=== PATIENT | female | born 1990 | race Caucasian/White ===

== ENCOUNTER → 2017-01-20 | Outpatient (CLI) | payer OTHER | END | disposition home or self-care (01) | LOC: LAB 07:26 | PROVIDERS: ATTEND Obstetrics & Gynecology Reproductive Endocrinology | DX: N91.2 Amenorrhea, unspecified (principal) | CPT/HCPCS: 36415; 82670; 84144; 84702 ==

== ENCOUNTER 2017-01-26 20:36 | Emergency (ER) | payer OTHER ==
[~2017-01-26] VITALS: Ht 160 cm; Wt 56.1 kg
[2017-01-26] MEDS ORDERED: DIPH,PERTUSS(ACELL),TET VAC/PF 0.5 ML IM-VACC ONE (20:54)
[2017-01-26] MEDS ORDERED: [UNRECOGNIZED DRUG - OTHER] VG (21:04)
[2017-01-26] MEDS ORDERED: ESTR0.5T INJ (21:04)
[2017-01-26] MEDS ORDERED: PROG50VI2 INJ (21:04)
[2017-01-26] MEDS ORDERED: ASPI-621 PO (21:04)
[2017-01-26] MEDS ORDERED: ONDANSETRON 2MG/ML, 2ML IVPush ONE (21:30)
[2017-01-26] MEDS ORDERED: SODIUM CHLORIDE 0.9% 1,000ML IVBOLUS ONE (21:30)
[2017-01-26] MEDS ORDERED: SODIUM CHLORIDE FLUSH 10ML SYR IVF ONE (21:30)
[2017-01-26 21:46] LABS: ASPARTATE AMINO TRANSFERASE 12 U/L (15-37); BLOOD UREA NITROGEN 13 mg/dL (7-18)
[2017-01-26] MEDS ORDERED: ONDANSETRON 2MG/ML, 2ML ONE (21:57)
[2017-01-27 00:07] VITALS: BP 97/58
== END 2017-01-27 00:09 | disposition home or self-care (01) ==
LOC: ED 21:29
DX: O23.11 Infections of bladder in pregnancy, first trimester (principal); Z3A.01 Less than 8 weeks gestation of pregnancy
CPT/HCPCS: 36415; 76770; 76801; 80053; 81001; 84702; 84703; 85025; 87077; 87086; 87186; 96361; 96374; 99285; J2405; J7030

== ENCOUNTER 2017-09-24 23:39 | Inpatient (IN) | payer OTHER ==
[~2017-09-24] VITALS: Ht 160 cm; Wt 72.0 kg
[~2017-09-24 23:39] MED LIST: ASPI-621 PO; ESTR0.5T INJ; PROG50VI2 INJ; [UNRECOGNIZED DRUG - OTHER] VG
[2017-09-25] MEDS ORDERED: OXYTOCIN 30U/ 0.9% NaCL 500ML 500 ML IV ONE (00:09)
[2017-09-25] MEDS ORDERED: D5%-LACTATED RINGERS 1,000 ML IV SCH (00:09)
[2017-09-25] MEDS ORDERED: OXYTOCIN 30U/ 0.9% NaCL 500ML 500 ML ONE ×2 (00:17→22:42)
[2017-09-25] MEDS ORDERED: NEWBORN KIT ONE (00:17)
[2017-09-25] MEDS ORDERED: LIDOCAINE 1%, 20ML ONE (00:17)
[2017-09-25] MEDS: LACTATED RINGERS 1,000 ML IV SCH ×2 (00:30→13:08)
[2017-09-25] MEDS ORDERED: FENTANYL PF 100 MCG/2ML IVPush PRN (00:30)
[2017-09-25] MEDS ORDERED: ONDANSETRON 2MG/ML, 2ML IVPush PRN (00:30)
[2017-09-25] MEDS ORDERED: LACTATED RINGERS 1,000 ML IVBOLUS PRN ×2 (00:30→01:30)
[2017-09-25] MEDS ORDERED: FENTANYL PF 100 MCG/2ML IV PRN (00:30)
[2017-09-25] MEDS ORDERED: CALCIUM CARBONATE 500 MG TAB.CHEW PO PRN (00:30)
[2017-09-25 00:38] LABS: BASOPHILS # (AUTO) 0.06 x10^3/uL (0-0.1); BASOPHILS % (AUTO) 0 % (0-1); EOSINOPHILS # (AUTO) 0.03 x10^3/uL (0-0.4); EOSINOPHILS % (AUTO) 0 % (1-7); LYMPHOCYTES # (AUTO) 1.93 x10^3/uL (1-3.4); LYMPHOCYTES % (AUTO) 13 % (22-44); MD NO; MEAN CORPUSCULAR HEMOGLOBIN 29.9 pg (27.0-34.8); MEAN CORPUSCULAR HGB CONC 33.8 g/dL (32.4-35.8); MEAN CORPUSCULAR VOLUME 88.4 fL (80-100); MEAN PLATELET VOLUME 11.6 fL (7.4-10.4); MONOCYTES # (AUTO) 0.91 x10^3/uL (0.2-0.8); MONOCYTES % (AUTO) 6 % (2-9); NEUTROPHILS # (AUTO) 11.61 x10^3/uL (1.8-6.8); NEUTROPHILS % (AUTO) 80 % (42-75); PLATELET COUNT 212 x10^3/uL (130-400); RED BLOOD COUNT 4.09 x10^6/uL (3.82-5.3); RED CELL DISTRIBUTION WIDTH 13.9 % (9.6-15.2)
[2017-09-25] MEDS ORDERED: LIDOCAINE-MPF 2% ,5ML ONE (00:53)
[2017-09-25] MEDS ORDERED: FENTANYL/BUPIV./NS/PF 250 ML EPIDCONT ONE (00:54)
[2017-09-25] MEDS ORDERED: LACTATED RINGERS 1,000 ML IV SCH (01:24)
[2017-09-25] MEDS ORDERED: FENTANYL/BUPIV./NS/PF 250 ML EPIDCONT SCH (01:24)
[2017-09-25] MEDS ORDERED: EPHEDRINE 50 MG/ML, 1ML IVPush PRN (01:30)
[2017-09-25] MEDS ORDERED: NALOXONE 0.4 MG/ML, 1ML IVPush PRN (01:30)
[2017-09-25] MEDS ORDERED: CALCIUM CARBONATE 500 MG TAB.CHEW ONE (05:32)
[2017-09-25] MEDS ORDERED: OXYTOCIN 30U/ 0.9% NaCL 500ML 500 ML IV PRN (10:48)
[2017-09-25] MEDS: OXYTOCIN 30U/ 0.9% NaCL 500ML 500 ML IV SCH (22:41)
[2017-09-25] MEDS ORDERED: IBUPROFEN 600 MG TABLET ONE (22:42)
[2017-09-25] MEDS: IBUPROFEN 600 MG TABLET PO PRN (22:45)
[2017-09-25] MEDS ORDERED: RHOGAM FROM BLOOD BANK 1 NOTE EA IM/IV ONE (23:00)
[2017-09-25] MEDS ORDERED: METHYLERGONOVINE 0.2 MG/ML IM PRN (23:00)
[2017-09-25] MEDS ORDERED: ACETAMINOPHEN 325 MG TABLET PO PRN (23:00)
[2017-09-25] MEDS ORDERED: DIPH,PERTUSS(ACELL),TET VAC/PF NC IM-VACC PRN (23:00)
[2017-09-25] MEDS ORDERED: MEASLES,MUMPS&RUBELLA VACC/PF 0.5 ML SQ PRN (23:00)
[2017-09-25] MEDS ORDERED: CARBOPROST TROMETHAMINE 250 MCG/ML, 1ML IM PRN (23:00)
[2017-09-25] MEDS ORDERED: MISOPROSTOL 200 MCG TABLET PR PRN (23:00)
[2017-09-25] MEDS ORDERED: OXYcodone/APAP 5/325MG TABLET PO PRN (23:00)
[2017-09-26 01:00] VITALS: BP 124/80
[2017-09-26 05:00] VITALS: BP 120/70
[2017-09-26] MEDS: IBUPROFEN 600 MG TABLET PO PRN ×3 (05:25→17:00)
[2017-09-26 06:10] LABS: MEAN CORPUSCULAR HEMOGLOBIN 29.5 pg (27.0-34.8); MEAN CORPUSCULAR HGB CONC 33.5 g/dL (32.4-35.8); MEAN CORPUSCULAR VOLUME 88.1 fL (80-100); MEAN PLATELET VOLUME 10.9 fL (7.4-10.4); PLATELET COUNT 179 x10^3/uL (130-400); RED BLOOD COUNT 3.64 x10^6/uL (3.82-5.3); RED CELL DISTRIBUTION WIDTH 15.1 % (9.6-15.2)
[2017-09-26 07:52] LABS: MD YES
[2017-09-26 07:54] LABS: BAND#(MANUAL) 1.28 x10^3/uL; BANDS%(MANUAL) 7 % (0-7); LYMPH#(MANUAL) 0.55 x10^3/uL (1-3.4); LYMPHS% (MANUAL) 3 % (22-44); MONOS#(MANUAL) 0.37 x10^3/uL (0.3-2.7); MONOS% (MANUAL) 2 % (2-9); SEGS% (MANUAL) 88 % (42-75)
[2017-09-26 07:56] LABS: <PLATELET ESTIMATE> ADEQUATE; <PLT MORPHOLOGY> NORMAL PLT MORPH; <RBC MORPHOLOGY> NORMAL
[2017-09-26 08:00] VITALS: BP 127/80
[2017-09-26] MEDS: OXYTOCIN 30U/ 0.9% NaCL 500ML 500 ML IV SCH ×2 (08:41→18:41)
[2017-09-26] MEDS: PRENATAL VIT/IRON/FA 1 EACH TABLET PO SCH (09:26)
[2017-09-26] MEDS: DOCUSATE 100 MG CAPSULE PO PRN ×2 (09:26→20:34)
[2017-09-26] MEDS: OXYcodone/APAP 5/325MG TABLET PO PRN ×3 (11:18→20:35)
[2017-09-26 12:05] VITALS: BP 132/84
[2017-09-26 16:00] VITALS: BP 126/83
[2017-09-26 20:00] VITALS: BP 125/91
[2017-09-27] MEDS: OXYcodone/APAP 5/325MG TABLET PO PRN ×2 (01:59→06:13)
[2017-09-27] MEDS: IBUPROFEN 600 MG TABLET PO PRN ×2 (01:59→08:06)
[2017-09-27] MEDS: OXYTOCIN 30U/ 0.9% NaCL 500ML 500 ML IV SCH (04:41)
[2017-09-27 07:31] VITALS: BP 133/91
[2017-09-27] MEDS: PRENATAL VIT/IRON/FA 1 EACH TABLET PO SCH (08:06)
[2017-09-27] MEDS: DOCUSATE 100 MG CAPSULE PO PRN (08:06)
[2017-09-27] MEDS ORDERED: IBUP-1222 PO (10:21)
[2017-09-27] MEDS ORDERED: OXYC-302 PO (10:21)
== END 2017-09-27 11:55 | disposition home or self-care (01) | DRG 775 ==
LOC: LDOP 23:39 → LDIP 09-25 00:15 → 2NW 09-26 00:37
PROVIDERS: ADMIT Obstetrics & Gynecology Maternal & Fetal Medicine; ATTEND Obstetrics & Gynecology Maternal & Fetal Medicine
PROC: 10D07Z6 Extraction of Products of Conception, Vacuum, Via Natural or Artificial Opening (ICD-10-PCS; principal; 2017-09-25)
DX: O66.0 Obstructed labor due to shoulder dystocia (principal); Z37.0 Single live birth; Z3A.40 40 weeks gestation of pregnancy
CPT/HCPCS: 36415; 82803; 85025; 86850; 86900; J2590; J3010; J7120

== ENCOUNTER 2020-04-01 00:01 | Emergency (ER) | payer OTHER ==
[~2020-04-01] VITALS: Ht 160 cm; Wt 58.0 kg
[~2020-04-01 00:01] MED LIST changes: -ASPI-621 PO; +ASPI81TA45 PO; +IBUP-1222 PO; +OXYC-302 PO
[2020-04-01 00:40] VITALS: BP 108/79
[2020-04-01 01:28] LABS: BASOPHILS # (AUTO) 0.04 x10^3/uL (0-0.1); BASOPHILS % (AUTO) 0 % (0-1); EOSINOPHILS # (AUTO) 0.25 x10^3/uL (0-0.4); EOSINOPHILS % (AUTO) 2 % (1-7); LYMPHOCYTES # (AUTO) 2.43 x10^3/uL (1-3.4); LYMPHOCYTES % (AUTO) 19 % (22-44); MD NO; MEAN CORPUSCULAR HEMOGLOBIN 30.7 pg (27.0-34.8); MEAN CORPUSCULAR HGB CONC 33.7 g/dL (32.4-35.8); MEAN CORPUSCULAR VOLUME 91.1 fL (80-100); MEAN PLATELET VOLUME 8.8 fL (7.4-10.4); MONOCYTES # (AUTO) 0.72 x10^3/uL (0.2-0.8); MONOCYTES % (AUTO) 6 % (2-9); NEUTROPHILS # (AUTO) 9.44 x10^3/uL (1.8-6.8); NEUTROPHILS % (AUTO) 73 % (42-75); PLATELET COUNT 330 x10^3/uL (130-400); RED BLOOD COUNT 4.16 x10^6/uL (3.82-5.3); RED CELL DISTRIBUTION WIDTH 12.9 % (9.6-15.2)
[2020-04-01 01:39] LABS: ALBUMIN 3.6 g/dL (3.4-5.0); ANION GAP 6 mmol/L (5-15); CALCIUM 9.3 mg/dL (8.5-10.1); CHLORIDE 107 mmol/L (98-107)
== END 2020-04-01 02:50 | disposition home or self-care (01) ==
LOC: ED 00:31
DX: O03.9 Complete or unspecified spontaneous abortion without complication (principal)
CPT/HCPCS: 36415; 76801; 80048; 82040; 84702; 85025; 86901; 99284